=== PATIENT | male | born 1970 | race Caucasian/White ===

== ENCOUNTER 2019-10-31 07:52 | Emergency (ER) | payer BC, MEDICARE ==
[~2019-10-31] VITALS: Ht 172.7 cm; Wt 101.3 kg
--- NOTE | 2019-10-31 08:46 | REP ---
Portable chest x-ray: Single view. History: Dyspnea and cough. No comparison study. Findings: Monitoring electrodes overlie the chest. Lungs are symmetrically aerated and clear. Pleural angles are sharp. Cardiac silhouette is prominent. Pulmonary vasculature is cephalized. No pulmonary edema or pleural effusion is seen. Impression: Prominent heart and cephalization. No pleural effusion or pulmonary edema. No infiltrate seen. Electronically Signed by Chicho Alfaro MD 10/31/2019 08:38 A
[2019-10-31] MEDS ORDERED: PROC5TA (09:04)
[2019-10-31] MEDS ORDERED: BRIL90TA (09:04)
[2019-10-31] MEDS ORDERED: OXYC1TAB15 (09:04)
[2019-10-31] MEDS ORDERED: LOSA100T50 (09:04)
[2019-10-31] MEDS ORDERED: FLUO40CA (09:04)
[2019-10-31] MEDS ORDERED: METO1TAB7 (09:05)
[2019-10-31] MEDS ORDERED: ROSU5TAB5 (09:05)
[2019-10-31] MEDS ORDERED: CALC260T PO (09:05)
[2019-10-31] MEDS ORDERED: NOVOINJ3 (09:05)
[2019-10-31] MEDS ORDERED: ASPI81TA85 PO (09:05)
[2019-10-31] MEDS ORDERED: GABA-1171 (09:05)
[2019-10-31 09:06] LABS: BASO # 0.1 10^3/uL (0.0-0.2); BASO % 0.7 % (0.0-1.0); EOS # 0.1 10^3/uL (0.0-0.5); HEMATOCRIT 39.2 % (42.0-52.0); HEMOGLOBIN 12.4 g/dl (13.5-17.5); LYMPH # 1.5 10^3/uL (1.5-5.0); MEAN CORPUSCULAR HEMOGLOBIN 28.3 pg (27.0-33.0); MEAN CORPUSCULAR HGB CONC 31.6 g/dl (32.0-36.5); MEAN CORPUSCULAR VOLUME 89.5 fl (80.0-96.0); MONO # 0.7 10^3/uL (0.0-0.8); MONO % 7.8 % (0.0-5.0); NEUTROPHILS # 6.4 10^3/uL (1.5-8.5); NEUTROPHILS % 72.5 % (36.0-66.0); PLATELET COUNT, AUTOMATED 244 10^3/uL (150-450); RED BLOOD COUNT 4.38 10^6/uL (4.30-6.10); WHITE BLOOD COUNT 8.8 10^3/uL (4.0-10.0)
[2019-10-31 09:33] LABS: ALBUMIN 3.2 GM/DL (3.2-5.2); BILIRUBIN,DIRECT 0.1 MG/DL (0.0-0.2); BILIRUBIN,TOTAL 0.3 MG/DL (0.2-1.0); CALCIUM LEVEL 8.5 MG/DL (8.5-10.1); CREATININE FOR GFR 5.08 MG/DL (0.70-1.30); GLOMERULAR FILTRATION RATE 13.1 (>60); POTASSIUM SERUM 4.6 MEQ/L (3.5-5.1); TOTAL PROTEIN 6.8 GM/DL (6.4-8.2)
[2019-10-31 09:34] LABS: MB/CK RELATIVE INDEX 5.33 (< OR =4); TROPONIN I 0.02 NG/ML (< 0.10)
[2019-10-31 10:49] VITALS: O2SAT 86
[2019-10-31 12:15] VITALS: BP 147/99
--- NOTE | 2019-11-01 20:43 | ECGEPIP ---
[facility] - ED Test Date: 2019-10-31 Pat Name: BEN HURST Department: Room: - Gender: Male Obstetrician And Gynaecologist: : 1970 Requested By: Mandeep Nava Order Number: [id number] Reading MD: Nena Kaufman Measurements Intervals [place] Rate: 89 P: 27 [place]: 169 QRS: -25 QRSD: 83 T: 45 QT: 390 QTc: 477 Interpretive Statements SINUS RHYTHM POSSIBLE LEFT ATRIAL ENLARGEMENT BORDERLINE LEFT AXIS DEVIATION POSSIBLE PRIOR INFERIOR INFARCT PROLONGED QTC NO PRIOR Electronically Signed on 11-01-2019 20:42:37 EDT by Nena Kaufman
== END 2019-10-31 12:25 | disposition short-term general hospital (02) ==
LOC: M ED 07:52
DX: I25.111 Atherosclerotic heart disease of native coronary artery with angina pectoris with documented spasm (principal); E87.70 Fluid overload, unspecified; N18.6 End stage renal disease; Z99.2 Dependence on renal dialysis; I13.2 Hypertensive heart and chronic kidney disease with heart failure and with stage 5 chronic kidney disease, or end stage renal disease; I50.9 Heart failure, unspecified; I25.2 Old myocardial infarction; E10.9 Type 1 diabetes mellitus without complications; R60.0 Localized edema; Z95.5 Presence of coronary angioplasty implant and graft; Z82.49 Family history of ischemic heart disease and other diseases of the circulatory system; Z79.899 Other long term (current) drug therapy; Z79.02 Long term (current) use of antithrombotics/antiplatelets; Z79.891 Long term (current) use of opiate analgesic; Z79.82 Long term (current) use of aspirin

== ENCOUNTER 2024-05-23 11:48 | Emergency (ER) | payer MEDICARE ==
[~2024-05-23] VITALS: Ht 172.7 cm; Wt 101.0 kg
[~2024-05-23 11:48] MED LIST: ASPI81TA86 PO; BRIL90TA; CALC260T PO; FLUO40CA; GABA-1171 PO; LOSA100T46; METO1TAB7; NOVOINJ3; OXYC7.5T3; PROC5TAB57; ROSU5TAB40 PO
[2024-05-23 12:43] LABS: BASO % 0.6 % (0.0-1.0); EOS # 0.2 10^3/uL (0.0-0.5); EOS % 2.1 % (0.0-3.0); HEMATOCRIT 44.2 % (42.0-52.0); HEMOGLOBIN 14.4 g/dl (13.5-17.5); LYMPH # 0.9 10^3/uL (1.5-5.0); LYMPH % 11.9 % (24.0-44.0); MEAN CORPUSCULAR HEMOGLOBIN 31.1 pg (27.0-33.0); MEAN CORPUSCULAR HGB CONC 32.6 g/dl (32.0-36.5); MEAN CORPUSCULAR VOLUME 95.5 fl (80.0-96.0); MONO # 0.6 10^3/uL (0.0-0.8); MONO % 8.8 % (2.0-8.0); NEUTROPHILS # 5.5 10^3/uL (1.5-8.5); NEUTROPHILS % 76.2 % (36.0-66.0); PLATELET COUNT, AUTOMATED 131 10^3/uL (150-450); RED BLOOD COUNT 4.63 10^6/uL (4.30-6.10); WHITE BLOOD COUNT 7.2 10^3/uL (4.0-10.0)
[2024-05-23] MEDS ORDERED: LISI40TA4 PO (12:47)
[2024-05-23] MEDS ORDERED: AMLO1TAB25 PO (12:47)
[2024-05-23] MEDS ORDERED: HOME MED LIST COMPLETE! XX SCH (12:50)
[2024-05-23] MEDS: NITROGLYCERIN 0.4MG SUBL TABLET SL PRN (13:12)
[2024-05-23] MEDS: ASPIRIN 81MG CHEW TABLET PO ONE (13:12)
[2024-05-23 13:46] LABS: CK-MB VALUE MASS 3.3 NG/ML (<3.6)
[2024-05-23 13:48] LABS: MB/CK RELATIVE INDEX 2.82 (< OR =4)
[2024-05-23 13:50] LABS: INR 1.39; PROTHROMBIN TIME 16.6 SECONDS (12.5-14.5)
[2024-05-23 13:52] LABS: CALCIUM LEVEL 7.6 MG/DL (8.5-10.1); CREATININE FOR GFR 8.55 MG/DL (0.70-1.30); POTASSIUM SERUM 5.6 MMOL/L (3.5-5.1)
[2024-05-23] MEDS: NITROGLYCERIN 2% OINT 1 GM *U/D* PKT TOP ONE (14:01)
[2024-05-23 14:51] LABS: CK-MB VALUE MASS 3.2 NG/ML (<3.6)
[2024-05-23] MEDS: PATIROMER SORBITEX CALCIUM 8.4 GM POWDER PACKET (VELTASSA) PO ONE (14:51)
[2024-05-23 14:52] LABS: MB/CK RELATIVE INDEX 2.8 (< OR =4)
[2024-05-23 15:41] VITALS: BP 169/106
[2024-05-23] MEDS: oxyCODONE 5MG TAB PO ONE (15:41)
[2024-05-23] MEDS: CARVedilol 12.5 MG TAB PO ONE (15:41)
[2024-05-23] MEDS: LIDOCAINE VISCOUS 2% SOLN 15ML UDC PO ONE (15:42)
[2024-05-23] MEDS: PANTOPRAZOLE 40MG VIAL IV ONE (15:42)
[2024-05-23] MEDS: MAALOX 30 ML SUSP *UDC PO ONE (15:58)
[2024-05-23 17:15] VITALS: BP 159/96
[2024-05-23 17:18] VITALS: TEMP 96.9; O2SAT 97
== END 2024-05-23 17:30 | disposition home or self-care (01) ==
LOC: M ED 11:48
DX: R07.9 Chest pain, unspecified (principal); I44.0 Atrioventricular block, first degree; I45.10 Unspecified right bundle-branch block; E11.9 Type 2 diabetes mellitus without complications; I11.0 Hypertensive heart disease with heart failure; E78.5 Hyperlipidemia, unspecified; I50.22 Chronic systolic (congestive) heart failure; F12.10 Cannabis abuse, uncomplicated; Z91.018 Allergy to other foods; Z79.899 Other long term (current) drug therapy
CPT/HCPCS: 71045; 80048; 82550; 82553; 84484; 85025; 85610; 85730; 93005; 93041; 94760; 96374; 99285; J2470

== ENCOUNTER → 2024-07-31 | Outpatient (CLI) | payer MEDICARE ==
[~2024-07-31] MED LIST changes: +AMLO1TAB25 PO; +LISI40TA4 PO; -ROSU5TAB40 PO; +ROSU5TAB49 PO
== END ==
LOC: M PLAIMG 09:12
PROVIDERS: ATTEND Internal Medicine Cardiovascular Disease
DX: I50.22 Chronic systolic (congestive) heart failure (principal)

== ENCOUNTER → 2024-10-06 | Outpatient (CLI) | payer OTHER | LOC: M CARPUL 14:34 | PROVIDERS: ATTEND Registered Nurse | DX: I50.22 Chronic systolic (congestive) heart failure (principal) ==